=== PATIENT | male | born 1955 | race Caucasian/White ===

== ENCOUNTER 2022-10-30 03:38 | Emergency (ER) | payer BC, MEDICARE ==
[2022-10-30 04:01] VITALS: PULSE 78; RESP 18
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
[2022-10-30 07:30] VITALS: BP 160/73; TEMP 98.1
== END 2022-10-30 07:05 | disposition home or self-care (01) ==
LOC: EC 03:38
DX: Z00.8 Encounter for other general examination (principal)
CPT/HCPCS: 99283

== ENCOUNTER 2023-06-12 04:09 | Emergency (ER) | payer MEDICARE ==
[2023-06-12 04:24] VITALS: RESP 18; TEMP 98
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
[2023-06-12 05:37] VITALS: BP 134/82; PULSE 55
== END 2023-06-12 05:14 | disposition home or self-care (01) ==
LOC: EC 04:09
DX: S01.01XA Laceration without foreign body of scalp, initial encounter (principal); S41.112A Laceration without foreign body of left upper arm, initial encounter; S70.12XA Contusion of left thigh, initial encounter; S40.212A Abrasion of left shoulder, initial encounter; Z87.891 Personal history of nicotine dependence; Y04.0XXA Assault by unarmed brawl or fight, initial encounter
CPT/HCPCS: 99283